=== PATIENT | male | born 1995 | race African-American/Black ===

== ENCOUNTER 2017-04-08 14:41 | Emergency (ER) | payer MEDICAID ==
[~2017-04-08] VITALS: Ht 170.2 cm; Wt 59.0 kg
[2017-04-08 14:59] VITALS: BP 137/58
[2017-04-08] MEDS ORDERED: LIDOCAINE HCL 1% 20ML VIAL (Pyxis) INJ MC ONE (16:30)
== END 2017-04-08 18:22 | disposition home or self-care (01) ==
LOC: ER 16:27
DX: L02.414 Cutaneous abscess of left upper limb (principal); J45.909 Unspecified asthma, uncomplicated
CPT/HCPCS: 10060; 99283; J3490; X7700; Z7610